=== PATIENT | female | born 1940 | race Caucasian/White ===

== ENCOUNTER 2020-10-22 16:12 | Emergency (ER) | payer OTHER ==
[~2020-10-22] VITALS: Ht 157.5 cm; Wt 95.3 kg
[2020-10-22 16:12] VITALS: BP_SYST 161
[2020-10-22] MEDS ORDERED: DIPH-TET-PERTUS Vaccine 0.5 ML VIAL (ADACEL) I.M. ONE (17:00)
[2020-10-22] MEDS ORDERED: LIDOCAINE HCL/PF 1% 10 ML AMPUL INJ ONE (17:15)
[2020-10-22] MEDS ORDERED: HYDROcodone/ACETAMIN 5-325 MG TAB (NORCO/ VICODIN) PO ONE ×2 (17:45→19:15)
[2020-10-22] MEDS ORDERED: HYDR-4272 PO (19:10)
[2020-10-22] MEDS ORDERED: CEPH-568 PO (19:12)
[2020-10-22] MEDS ORDERED: cephALEXin 500 MG CAPSULE PO ONE (19:15)
[2020-10-22 19:24] VITALS: BP_SYST 151
== END 2020-10-22 19:25 | disposition home or self-care (01) ==
LOC: SED 16:12
DX: S62.632B Displaced fracture of distal phalanx of right middle finger, initial encounter for open fracture (principal); W23.0XXA Caught, crushed, jammed, or pinched between moving objects, initial encounter; Y93.89 Activity, other specified; Y92.89 Other specified places as the place of occurrence of the external cause; Y99.8 Other external cause status
CPT/HCPCS: 12001; 73140; 90471; 90715; 99284; J2001